=== PATIENT | male | born 1965 | race Caucasian/White ===

== ENCOUNTER 2019-06-23 22:13 | Emergency (ER) | payer SELFPAY ==
[~2019-06-23] VITALS: Ht 175.3 cm; Wt 88.7 kg
[~2019-06-23 22:13] MED LIST: CYCL10TA7 PO; HYDR-4011 PO; HYDR10FO PR; IBUP-1542 PO
[2019-06-23 22:20] VITALS: Ht 175.3 cm; Wt 88.7 kg
[2019-06-23] MEDS ORDERED: KETOROLAC 30 MG INJ IM STA (23:44)
[2019-06-24] MEDS ORDERED: HYDROCODONE/APAP (5/325) TAB PO ONE
[2019-06-24 00:35] VITALS: BP 150/82; PULSE 78; RESP 16
== END 2019-06-24 00:42 | disposition home or self-care (01) ==
LOC: FTE 22:13
DX: M25.511 Pain in right shoulder (principal); I10 Essential (primary) hypertension
CPT/HCPCS: 96372; 99284; J1885